=== PATIENT | male | born 1955 | race Caucasian/White ===

== ENCOUNTER 2017-08-16 08:08 | Emergency (ER) | payer BC ==
[~2017-08-16] VITALS: Ht 182.9 cm; Wt 85.0 kg
[2017-08-16 08:15] VITALS: BP 129/84
[2017-08-16] MEDS ORDERED: normal saline 1000ML IV soln IVB STA (08:41)
[2017-08-16] MEDS ORDERED: diphenhydrAMINE 50 mg/ml inj IV ONE (08:45)
[2017-08-16] MEDS ORDERED: methylPREDNISolone sod succ 125mg/2ml vial IV ONE (08:45)
[2017-08-16] MEDS ORDERED: famotidine/PF 10 mg/ml inj IV ONE (08:45)
[2017-08-16] MEDS ORDERED: epiNEPHrine 1 mg/ml inj SQ ONE (08:45)
[2017-08-16] MEDS ORDERED: PRED20TA PO (09:50)
== END 2017-08-16 10:15 | disposition home or self-care (01) ==
LOC: ER 08:10
DX: T78.40XA Allergy, unspecified, initial encounter (principal); X58.XXXA Exposure to other specified factors, initial encounter; I10 Essential (primary) hypertension; Z79.899 Other long term (current) drug therapy; Z91.018 Allergy to other foods
CPT/HCPCS: 96361; 96372; 96374; 96375; 99284; J0171; J1200; J2930; J3490; J7030

== ENCOUNTER 2017-12-21 07:16 | Day surgery (SDC) | payer BC ==
[2017-12-21] VITALS (11 sets, daily range): BP systolic 126–154; BP diastolic 70–94
[~2017-12-21] VITALS: Ht 182.9 cm; Wt 85.6 kg
[2017-12-21] MEDS ORDERED: oxyCODONE IR 5mg (immed. release) tablet PO PRN (07:35)
[2017-12-21] MEDS ORDERED: normal saline 1000ml 1,000 ML IV PRN (07:35)
[2017-12-21] MEDS ORDERED: AMLO2.5T2 PO (07:40)
[2017-12-21] MEDS ORDERED: DOXA4TAB3 PO (07:40)
[2017-12-21] MEDS ORDERED: IBUP200C74 PO (07:40)
[2017-12-21] MEDS ORDERED: fentaNYL/PF 50MCG/1 ML 2ML syringe IV ONE (07:45)
[2017-12-21] MEDS ORDERED: MIDAZolam 5mg/ml 2ml vial IV ONE (07:45)
[2017-12-21 08:17] LABS: BASOPHILS % (AUTO) 0.6 % (0-1); EOSINOPHILS # (AUTO) 0.2 X10'3 (0-0.9); EOSINOPHILS % (AUTO) 5.5 % (0-6); HEMATOCRIT 42.4 % (42.0-52.0); HEMOGLOBIN 15.1 g/dl (14.0-17.9); LYMPHOCYTES # (AUTO) 0.7 X10'3 (1.1-4.8); LYMPHOCYTES % (AUTO) 16.2 % (21-51); MEAN CORPUSCULAR HEMOGLOBIN 31.3 PG (27.0-31.0); MEAN CORPUSCULAR HGB CONC 35.7 % (33.0-36.5); MEAN CORPUSCULAR VOLUME 87.7 FL (78-98); MEAN PLATELET VOLUME 6.7 FL (7.4-10.4); MONOCYTES # (AUTO) 0.3 X10'3 (0-0.9); MONOCYTES % (AUTO) 6.4 % (2-12); NEUTROPHILS # (AUTO) 3.1 X10'3 (1.8-7.7); NEUTROPHILS % (AUTO) 71.3 % (42-75); PLATELET COUNT 142 X10'3 (140-440); RED BLOOD COUNT 4.84 X10'6 (4.70-6.10); RED CELL DISTRIBUTION WIDTH 13.6 % (11.5-14.5); WHITE BLOOD COUNT 4.4 X10'3 (4.5-11.0)
[2017-12-21 08:25] LABS: PROTHROMBIN TIME 10.4 SECONDS (9.0-12.0)
[2017-12-21] MEDS ORDERED: LIDOcaine 1%/PF 5ML 10 MG/ML VIAL SQ ONE (09:00)
[2017-12-21] MEDS ORDERED: normal saline 1000ml 1,000 ML IV SCH (11:03)
== END 2017-12-21 12:20 | disposition home or self-care (01) ==
LOC: SSTAY O 07:16
PROVIDERS: ATTEND Radiology Vascular & Interventional Radiology
DX: D69.6 Thrombocytopenia, unspecified (principal); R94.5 Abnormal results of liver function studies; R16.1 Splenomegaly, not elsewhere classified; I10 Essential (primary) hypertension; F10.21 Alcohol dependence, in remission; Z79.1 Long term (current) use of non-steroidal anti-inflammatories (NSAID); Z91.018 Allergy to other foods; Z79.899 Other long term (current) drug therapy; Z88.8 Allergy status to other drugs, medicaments and biological substances; Z98.890 Other specified postprocedural states
CPT/HCPCS: 36415; 47000; 76942; 85025; 85610; 99152; 99153; J2001; J2250; J3010; J7030; A4620